=== PATIENT | male | born 1930 | race Caucasian/White ===

== ENCOUNTER 2016-11-12 08:34 | Inpatient (IN) | payer OTHER, MEDICARE ==
--- NOTE | 2016-11-12 08:48 | EDPHY ---
H & P Stated Complaint: bilateral leg swelling/?afib Time Seen by Provider: 11/12/16 08:45 HPI/ROS: CHIEF COMPLAINT: Bilateral lower extremity swelling HISTORY OF PRESENT ILLNESS: The patient presents to the ED with markedly worsening bilateral lower extremity swelling for the past 2 weeks. He does have a history of chronic lower extremity edema and possible history of atrial fibrillation. The patient takes gabapentin and Coumadin. The patient has no history of heart failure that he is aware of. The patient does not take a diuretic. The patient typically receives his care in [place] however has been here in [place] for several weeks as his is recovering from an unexpected injury. He is living with his daughter who brings him to the emergency department for evaluation today. The patient denies orthopnea or PND. The patient reports market increase in his bilateral lower extremity edema with some weeping serous fluid drainage. The patient has been compliant with his Coumadin. He has not had a recent INR check. REVIEW OF SYSTEMS: A comprehensive 10 point review of systems is otherwise negative aside from elements mentioned in the history of present illness. Source: Patient Exam Limitations: No limitations - Personal History Current Tetanus/Diphtheria Vaccine: Yes - Medical/Surgical History Hx Asthma: No Hx Chronic Respiratory Disease: No Hx Diabetes: No Hx Cardiac Disease: Yes Hx Renal Disease: No Hx Cirrhosis: No Hx Alcoholism: No Hx HIV/AIDS: No Hx Splenectomy or Spleen Trauma: No Other PMH: afib - Social History Smoking Status: Never smoked - Physical Exam Exam: General Appearance: Obese male, no acute distress Eyes: Pupils equal and round no pallor or injection ENT, Mouth: Mucous membranes moist Respiratory: There are no retractions, lungs are clear to auscultation Cardiovascular: Tachycardic, irregular, consistent with atrial fibrillation Gastrointestinal: Abdomen is soft and nontender, no masses, bowel sounds normal Neurological: A&O, normal motor function, normal sensory exam, normal cranial nerves Skin: Warm and dry, no rashes Musculoskeletal: Neck is supple nontender Extremities: Bilateral lower extremity swelling with 3+ edema Constitutional: Initial Vital Signs Temperature (C) 36.2 C 11/12/16 08:40 Heart Rate 135 H 11/12/16 08:40 Respiratory Rate 28 H 11/12/16 08:40 Blood Pressure 169/95 H 11/12/16 08:40 O2 Sat (%) 92 11/12/16 08:40 O2 Delivery Mode Room Air O2 (L/minute) 2 Allergies/Adverse Reactions: No Known Allergies Allergy (Unverified 11/12/16 08:39) Home Medications: Medication Instructions Recorded GABAPENTIN 11/12/16 Warfarin Sodium 11/12/16 Medical Decision Making - Diagnostics EKG Interpretation: EKG: Complete interpretation has been separately recorded in the [facility] archive. Summary impression: Atrial fibrillation with rapid ventricular response, rate 137 Imaging: Chest AP: Cardiomegaly, no laurent congestive heart failure. Images reviewed by myself Bilateral lower extremity ultrasound: Positive for bilateral lower extremity DVTs. Images reviewed by myself and discussed with radiologist Dr. Suarez. ED Course/Re-evaluation: The patient presents to the emergency department for evaluation of bilateral lower extremity edema and AFib with rapid ventricular response. The patient is noted to be hemodynamically stable aside from his tachycardia upon arrival. The patient did have a stat x-ray which demonstrates no evidence of laurent heart failure but does demonstrate cardiomegaly. The patient did received 40 mg of IV Lasix for bilateral lower extremity swelling. As part of a workup for his bilateral lower extremity swelling the patient is noted to have bilateral DVTs. The patient is therapeutically anticoagulated on his Coumadin with an INR of 2.5. The patient did undergo an echocardiogram in the emergency department which demonstrates an ejection fraction of 55%. The patient was also started on a diltiazem drip for management of his atrial fibrillation with rapid ventricular response. The patient had serial examinations in the emergency department. He will require admission to the hospital in the setting of his uncontrolled atrial fibrillation, acute bilateral lower extremity DVTs while on Coumadin and treatment of his lower extremity edema. Consultation is made with the hospitalist service. The patient will be admitted by Dr. Laurent Smart. Differential Diagnosis: Differential diagnosis considered includes atrial fibrillation, ventricular tachycardia, congestive heart failure, myocardial infarction, lower extremity edema, cellulitis - Data Points Laboratory Results: Laboratory Results 11/12/16 08:54 11/12/16 08:54 11/12/16 08:54 WBC 6.82 10^3/uL (3.80-9.50) RBC 4.16 L 10^6/uL (4.40-6.38) Hgb 15.3 g/dL (13.7-17.5) Hct 46.1 % (40.0-51.0) MCV 110.8 H fL (81.5-99.8) MCH 36.8 H pg (27.9-34.1) MCHC 33.2 g/dL (32.4-36.7) RDW 13.8 % (11.5-15.2) Plt Count 99 L 10^3/uL (150-400) MPV 9.9 fL (8.7-11.7) Neut % (Auto) 70.6 % (39.3-74.2) Lymph % (Auto) 21.1 % (15.0-45.0) [place] % (Auto) 6.2 % (4.5-13.0) Eos % (Auto) 0.4 L % (0.6-7.6) Baso % (Auto) 0.1 L % (0.3-1.7) Nucleat RBC Rel Count 0.4 H % (0.0-0.2) Absolute Neuts (auto) 4.81 10^3/uL (1.70-6.50) Absolute Lymphs (auto) 1.44 10^3/uL (1.00-3.00) Absolute Monos (auto) 0.42 10^3/uL (0.30-0.80) Absolute Eos (auto) 0.03 10^3/uL (0.03-0.40) Absolute Basos (auto) 0.01 L 10^3/uL (0.02-0.10) Absolute Nucleated RBC 0.03 H 10^3/uL (0-0.01) Immature Gran % 1.6 H % (0.0-1.1) Immature Gran # 0.11 H 10^3/uL (0.00-0.10) PT 27.3 H SEC (12.0-15.0) INR 2.50 H (0.83-1.16) Sodium 145 H mEq/L (134-144) Potassium 4.2 mEq/L (3.5-5.2) Chloride 105 mEq/L (97-110) Carbon Dioxide 28 mEq/l (22-31) Anion Gap 12 mEq/L (8-16) BUN 21 mg/dL (7-23) Creatinine 1.0 mg/dL (0.7-1.3) Estimated GFR > 60 Glucose 107 H mg/dL (70-100) Calcium 8.8 mg/dL (8.5-10.4) Troponin I 0.043 H ng/mL (0-0.034) NT-Pro-B Natriuret Pep 2270 H pg/mL (0-450) Medications Given: Discontinued Medications Furosemide (Lasix Injection) 40 mg IVP EDNOW ONE Stop: 11/12/16 09:46 Last Admin: 11/12/16 10:00 Dose: 40 mg Diltiazem HCl 125 mg/ Dextrose 150 mls @ 0 mls/hr IV EDNOW ONE; As Directed PRN Reason: Protocol Stop: 11/12/16 11:25 Last Admin: 11/12/16 12:25 Dose: 150 mls Departure - Departure Disposition: [facility] Clinical Impression: Peripheral edema, Bilateral lower extremity edema, Atrial fibrillation with RVR Condition: Fair
--- NOTE | 2016-11-12 08:58 | CPEKG ---
Heart Rate: 137 RR Interval: 438 QRSD Interval: 86 QT Interval: 272 QTC Interval: 411 QRS [place]: 87 T Wave [place]: -51 EKG Severity - ABNORMAL ECG - EKG Impression: ATRIAL FIBRILLATION, V-RATE 92-167 EKG Impression: BORDERLINE RIGHT AXIS DEVIATION Electronically Signed By: Jason Velazco 13-Nov-2016 11:54:42
[2016-11-12 09:06] LABS: % IMMATURE GRANULYOCYTES 1.6 % (0.0-1.1); ABSOLUTE IMMATURE GRANULOCYTES 0.11 10^3/uL (0.00-0.10); ABSOLUTE NRBC COUNT 0.03 10^3/uL (0-0.01); ADD DIFF? NO; ADD MORPH? NO; ADD SCAN? NO; ATYPICAL LYMPHOCYTE FLAG 0 (0-99); FRAGMENT RBC FLAG 0 (0-99); HEMATOCRIT 46.1 % (40.0-51.0); HEMOGLOBIN 15.3 g/dL (13.7-17.5); LEFT SHIFT FLG 20 (0-99); LIPEMIA HEMOLYSIS FLAG 80 (0-99); MEAN CELL HEMOGLOBIN 36.8 pg (27.9-34.1); MEAN CELL HEMOGLOBIN CONCENTR. 33.2 g/dL (32.4-36.7); MEAN CELL VOLUME 110.8 fL (81.5-99.8); MEAN PLATELET VOLUME 9.9 fL (8.7-11.7); NRBC-AUTO% 0.4 % (0.0-0.2); PLATELET CLUMPS FLAG 0 (0-99); PLATELET COUNT 99 10^3/uL (150-400); RED BLOOD CELL COUNT 4.16 10^6/uL (4.40-6.38); RED CELL DISTRIBUTION WIDTH 13.8 % (11.5-15.2)
[2016-11-12 09:17] LABS: ANION GAP 12 mEq/L (8-16); CALCIUM 8.8 mg/dL (8.5-10.4); CARBON DIOXIDE 28 mEq/l (22-31); CHLORIDE 105 mEq/L (97-110); GLOMERULAR FILTRATION RATE > 60; GLUCOSE 107 mg/dL (70-100); POTASSIUM 4.2 mEq/L (3.5-5.2); SODIUM 145 mEq/L (134-144)
[2016-11-12 09:20] LABS: INR 2.5 (0.83-1.16); PROTIME(PATIENT) 27.3 SEC (12.0-15.0)
[2016-11-12 09:29] LABS: TROPONIN I 0.043 ng/mL (0-0.034)
[2016-11-12] MEDS ORDERED: FUROSEMIDE 40 MG/4 ML VIAL IVP ONE (09:45)
--- NOTE | 2016-11-12 11:00 | DX ---
Portable Chest November 12, 2016 at 0942 hours Clinical Indications: Shortness of breath in an 86-year-old male; no previous chest films are availab le for comparison. Findings: The heart is enlarged. Pulmonary vascularity appears normal. No pleural effusions are seen. No focal pulmonary consolidation is identified. Pleural surfaces and bony thorax are negative for ac huey abnormality. Impression: Congestive heart failure without laurent pulmonary edema.
--- NOTE | 2016-11-12 11:07 | ECHO ---
[id number] + + [address] : : [place] [address] : : [phone] + + Adult Echocardiographic Report + ------+ :Name: NOAHGODWIN BRUMFIELDOLPH DStudy Date: 11/12/2016 09:15 AM : : Hospital Admission Number: [id number] Locati on: ER: :: [id number] Gender: Male Height: 69 in : :Age: 86 yrs Weight: 220 lb : :Reason For Study: Edema/Afib : : BSA: 2.2 meter s2 : + ------+ MMode/2D Measurements & Calculations IVSd: 1.2 cm LVIDd: 5.0 cm EDV(Teich): 119.0 ml Ao root diam: 4.1 cm LVPWd: 1.1 cm LA dimension: 4.8 cm Normal Measurement Values: + + :LVIDd (3.5-5.7cm) IVSd (0.6-1.1cm) LVPWd (0.6-1.1cm) Aortic Root (2.0-3.7cm)Left Atrium (1.5-4.0cm): :LV Vol(d) (76-115ml) LV Vol(s) (29-48ml) Ejec Fraction (50-65%)PV Ga (0.6- 1.2m/s) TV Ga (0.4-1.0m/s) : :MV E Ga (0.8-1.0m/s)MV A Ga (0.3-1.0m/s)LVOT Ga (0.7-1.2m/s) Asc Ao Ga ( 0.9-1.8m/s) : + + Doppler Measurements & Calculations MV E max ga: 88.4 cm/sec TR max ga: 259.0 cm/sec TR max P.8 mmHg RAP systole: 5.0 mmHg RVSP(TR): 31.8 mmHg Left Ventricle The left ventricle is normal in size. There is normal left ventricular wall thickness. Left ventricular systolic function is normal. Ejection Fraction = 55-60%. No regional wall motion abnormalities noted. Right Ventricle The right ventricle is normal in size and function. Atria The left atrium is moderately dilated. Right atrial size is normal. The interatrial septum is intact with no evidence for an atrial septal defect. Mitral Valve The mitral valve is normal in structure and function. There is no evidence of mitral valve prolapse. There is no mitral valve stenosis. There is mild to moderate mitral regurgitation. Tricuspid Valve Normal tricuspid valve. There is mild to moderate tricuspid regurgitation. Right ventricular systolic pressure is normal. Aortic Valve The aortic valve is trileaflet. The aortic valve opens well. Mild AO calcification. There is no aortic stenosis. Trace aortic regurgitation. Pulmonic Valve The pulmonic valve is normal in structure and function. There is no pulmonic valvular regurgitation. Great Vessels The aortic root is normal size. Pericardium/Pleural trivial pericardial effusion. Conclusion A complete two-dimensional transthoracic echocardiogram was performed (2D, M-mode, Doppler and color flow Doppler). Left ventricular systolic function is normal. Ejection Fraction = 55-60%. The left atrium is moderately dilated. There is mild to moderate mitral regurgitation. There is mild to moderate tricuspid regurgitation. Right ventricular systolic pressure is normal. Trace aortic regurgitation. Mild AO calcification. trivial pericardial effusion. Final Reading Physician: Mary Edwards signed on 11/12/2016 11:03 AM Ordering Physician: Jason Velazco Performed By: Catrachita Pedro RD
[2016-11-12] MEDS ORDERED: DILTIAZEM 125 MG in D5W 125 ML IV ONE (11:24)
--- NOTE | 2016-11-12 11:43 | US ---
Bilateral Lower Extremity Deep Duplex Venous Ultrasound November 12, 2016 Indication: Leg pain. Technique: The right and left lower extremity deep venous system and veins of the proximal calves wer e interrogated with grayscale, color, and spectral Doppler imaging. Findings: Right: Occlusive thrombus fills and expands the popliteal, peroneal and posterior tibial veins. Nonoc clusive thrombus extends superiorly into the distal femoral vein. The femoral vein in the upper thigh , common femoral vein, and greater saphenous vein completely compress and have normal flow. Left: Thrombus fills and expands the popliteal and distal posterior tibial and peroneal veins. A tric kle of flow courses along the thrombus on color Doppler imaging. The femoral vein, common femoral vei n, and greater saphenous vein compress and have normal blood flow. Impression: Bilateral acute deep venous thrombosis involving the popliteal, peroneal, and posterior t ibial veins. The thrombus on the right minimally extends into the distal femoral vein. Comment: Results were discussed with Dr. Jason Velazco at 11:35 a.m. on November 12, 2016.
--- NOTE | 2016-11-12 15:22 | PDGENHP ---
History and Physical - Chief Complaint Leg swelling - History of Present Illness this is a 86-year-old male visiting from [place] whose was recently treated at [facility] after sustaining a hip fracture presents to the emergency department today with worsening leg swelling. Patient denies any history of blood clots, but has been on warfarin for atrial fibrillation. Patient reports being off of warfarin for approximately 5 days at the beginning of the month when his prescription ran out. He then restarted his warfarin as directed. Over the past week and the patient noticed worsening swelling of his legs as well as some water draining from his right lower leg. He denies any fevers or chills. He always feels short of breath but has not noted to be hypoxemic at home per his daughter's portable oximeter. In the emergency department today He was found to be in rapid atrial fibrillation. The patient denies any chest pain or palpitations. He denies any new shortness of breath. History Information - Allergies/Home Medication List Allergies/Adverse Reactions: No Known Allergies Allergy (Unverified 11/12/16 08:39) Home Medications: Gabapentin [Neurontin 300 MG (*)] 600 mg PO DAILY@11/12/16 [Last Taken Unknown] Gabapentin [Neurontin 300 MG (*)] 900 mg PO HS 11/12/16 [Last Taken Unknown] Warfarin Sodium [Coumadin 4MG (*)] 4 mg PO DAILY16 11/12/16 [Last Taken Unknown] I have personally reviewed and updated: family history, medical history, social history, surgical history Past Medical History: peripheral neuropathy, atrial fibrillation, melanoma - Surgical History Additional surgical history: melanoma excision, cataract surgery - Social History Smoking Status: Never smoked Alcohol Use: Other (patient's daughter tells me that he drinks wine daily but is unable to quantify exactly how much. She estimates that it is around 20 oz.) Drug Use: None Additional social history: He is visiting from [place]. His is currently rehabilitating from hip fracture at [facility]. Review of Systems ROS: 10pt was reviewed & negative except for what was stated in HPI & below Neurological: Reports: other ( Patient's daughter reports increased forgetfulness and confusion over the past few days) Physical Exam Temp Pulse Resp BP Pulse Ox 36.6 C 126 H 20 119/70 96 11/12/16 15:07 11/12/16 15:07 11/12/16 15:07 11/12/16 15:07 11/12/16 15:07 O2 (L/minute) 1 Constitutional: no apparent distress, appears nourished, not in pain Eyes: PERRL, anicteric sclera, EOMI Ears, Nose, Mouth, Throat: moist mucous membranes, hearing normal, ears appear normal, no oral mucosal ulcers Cardiovascular: irregularly irregular, tachycardia, edema, No JVD Respiratory: no respiratory distress, no rales or rhonchi, clear to auscultation , No reduced air movement Gastrointestinal: normoactive bowel sounds, soft, non-tender abdomen, no palpable masses, No guarding, No rebound Skin: warm, normal color, no rashes or abrasions, no fluctuance, no induration, No mottled Musculoskeletal: full muscle strength, no muscle tenderness, normal joint ROM, no joint effusions Neurologic: AAOx3, CN II-XII Intact, No facial droop Psychiatric: interacting appropriately, not anxious, not encephalopathic, poor memory Lab Data & Imaging Review 11/12/16 08:54 11/12/16 08:54 WBC 6.82 10^3/uL (3.80-9.50) 11/12/16 08:54 RBC 4.16 10^6/uL (4.40-6.38) L 11/12/16 08:54 Hgb 15.3 g/dL (13.7-17.5) 11/12/16 08:54 Hct 46.1 % (40.0-51.0) 11/12/16 08:54 MCV 110.8 fL (81.5-99.8) H 11/12/16 08:54 MCH 36.8 pg (27.9-34.1) H 11/12/16 08:54 MCHC 33.2 g/dL (32.4-36.7) 11/12/16 08:54 RDW 13.8 % (11.5-15.2) 11/12/16 08:54 Plt Count 99 10^3/uL (150-400) L 11/12/16 08:54 MPV 9.9 fL (8.7-11.7) 11/12/16 08:54 Neut % (Auto) 70.6 % (39.3-74.2) 11/12/16 08:54 Lymph % (Auto) 21.1 % (15.0-45.0) 11/12/16 08:54 [place] % (Auto) 6.2 % (4.5-13.0) 11/12/16 08:54 Eos % (Auto) 0.4 % (0.6-7.6) L 11/12/16 08:54 Baso % (Auto) 0.1 % (0.3-1.7) L 11/12/16 08:54 Nucleat RBC Rel Count 0.4 % (0.0-0.2) H 11/12/16 08:54 Absolute Neuts (auto) 4.81 10^3/uL (1.70-6.50) 11/12/16 08:54 Absolute Lymphs (auto) 1.44 10^3/uL (1.00-3.00) 11/12/16 08:54 Absolute Monos (auto) 0.42 10^3/uL (0.30-0.80) 11/12/16 08:54 Absolute Eos (auto) 0.03 10^3/uL (0.03-0.40) 11/12/16 08:54 Absolute Basos (auto) 0.01 10^3/uL (0.02-0.10) L 11/12/16 08:54 Absolute Nucleated RBC 0.03 10^3/uL (0-0.01) H 11/12/16 08:54 Immature Gran % 1.6 % (0.0-1.1) H 11/12/16 08:54 Immature Gran # 0.11 10^3/uL (0.00-0.10) H 11/12/16 08:54 PT 27.3 SEC (12.0-15.0) H 11/12/16 08:54 INR 2.50 (0.83-1.16) H 11/12/16 08:54 Sodium 145 mEq/L (134-144) H 11/12/16 08:54 Potassium 4.2 mEq/L (3.5-5.2) 11/12/16 08:54 Chloride 105 mEq/L (97-110) 11/12/16 08:54 Carbon Dioxide 28 mEq/l (22-31) 11/12/16 08:54 Anion Gap 12 mEq/L (8-16) 11/12/16 08:54 BUN 21 mg/dL (7-23) 11/12/16 08:54 Creatinine 1.0 mg/dL (0.7-1.3) 11/12/16 08:54 Estimated GFR > 60 11/12/16 08:54 Glucose 107 mg/dL (70-100) H 11/12/16 08:54 Calcium 8.8 mg/dL (8.5-10.4) 11/12/16 08:54 Troponin I 0.043 ng/mL (0-0.034) H 11/12/16 08:54 NT-Pro-B Natriuret Pep 2270 pg/mL (0-450) H 11/12/16 08:54 Visualized and Interpreted Chest x-ray results: Yes Chest X-Ray results: other ( cardiomegaly with congestive heart failure) Visualized and Interpreted imaging results: Yes Interpretation: lower extremity Doppler: Impression: Bilateral acute deep venous thrombosis involving the popliteal, peroneal, and. posterior tibial veins. The thrombus on the right minimally extends into the distal femoral vein. Visualized and Interpreted EKG results: Yes EKG Interpretation: Positive for: other ( atrial fibrillation rate 137 beats per minute). Negative for: ST elevation, ST depression Assessment & Plan Assessment: This is a 86-year-old male visiting from [place] presenting with: # acute bilateral DVT Which most likely developed after being off of Coumadin at the beginning of the month. I doubt that this represents Coumadin failure # paroxysmal atrial fibrillation with rapid ventricular response # acute diastolic heart failure in the setting of rapid atrial fibrillation # indeterminate troponin due to myocardial strain from above # history of alcohol dependence # suspected delirium plan: - continue warfarin with daily monitoring of the INR - continue rate control with IV diltiazem - diuresis with IV furosemide - trend troponin - monitor for signs and symptoms of alcohol withdrawal
[2016-11-12] MEDS ORDERED: ONDANSETRON 4 MG/2 ML VIAL IVP PRN (15:38)
[2016-11-12] MEDS ORDERED: ACETAMINOPHEN 325 MG TAB PO PRN (15:38)
[2016-11-12] MEDS ORDERED: DILTIAZEM 125 MG in D5W 125 ML IV SCH (16:00)
[2016-11-12] MEDS: FUROSEMIDE 40 MG/4 ML VIAL IVP SCH (16:32)
[2016-11-12] MEDS: DILTIAZEM CD 120 MG CAP PO SCH (16:32)
[2016-11-12] MEDS: WARFARIN SODIUM 4 MG TAB PO SCH (16:32)
[2016-11-12] MEDS: GABAPENTIN 300 MG CAP PO SCH (20:05)
[2016-11-12] MEDS ORDERED: METOPROLOL TARTRATE 25 MG TAB PO ONE (23:30)
[2016-11-13 04:57] LABS: % IMMATURE GRANULYOCYTES 0.8 % (0.0-1.1); ABSOLUTE IMMATURE GRANULOCYTES 0.05 10^3/uL (0.00-0.10); ADD DIFF? NO; ADD MORPH? NO; ADD SCAN? NO; ATYPICAL LYMPHOCYTE FLAG 0 (0-99); FRAGMENT RBC FLAG 0 (0-99); HEMATOCRIT 41.7 % (40.0-51.0); LEFT SHIFT FLG 10 (0-99); LIPEMIA HEMOLYSIS FLAG 80 (0-99); MEAN CELL HEMOGLOBIN 36.2 pg (27.9-34.1); MEAN CELL HEMOGLOBIN CONCENTR. 33.6 g/dL (32.4-36.7); MEAN CELL VOLUME 107.8 fL (81.5-99.8); MEAN PLATELET VOLUME 10.1 fL (8.7-11.7); PLATELET CLUMPS FLAG 10 (0-99); PLATELET COUNT 99 10^3/uL (150-400); RED BLOOD CELL COUNT 3.87 10^6/uL (4.40-6.38); RED CELL DISTRIBUTION WIDTH 13.5 % (11.5-15.2)
[2016-11-13 05:04] LABS: ANION GAP 8 mEq/L (8-16); CALCIUM 8.4 mg/dL (8.5-10.4); CARBON DIOXIDE 29 mEq/l (22-31); CHLORIDE 103 mEq/L (97-110); CREATININE 0.9 mg/dL (0.7-1.3); GLOMERULAR FILTRATION RATE > 60; GLUCOSE 97 mg/dL (70-100); POTASSIUM 3.9 mEq/L (3.5-5.2); SODIUM 140 mEq/L (134-144)
[2016-11-13 05:11] LABS: INR 2.54 (0.83-1.16); PROTIME(PATIENT) 27.6 SEC (12.0-15.0)
[2016-11-13] MEDS: GABAPENTIN 300 MG CAP PO SCH ×3 (08:29→21:26)
[2016-11-13] MEDS: FUROSEMIDE 40 MG/4 ML VIAL IVP SCH ×2 (08:29→15:05)
[2016-11-13] MEDS: DILTIAZEM CD 120 MG CAP PO SCH (08:29)
--- NOTE | 2016-11-13 12:30 | HOSPPROG ---
Hospitalist Progress Note Assessment/Plan: Assessment: This is a 86-year-old male visiting from [place] presenting with: # acute bilateral DVT which most likely developed after being off of Coumadin at the beginning of the month. I doubt that this represents Coumadin failure # paroxysmal atrial fibrillation with rapid ventricular response # acute diastolic heart failure in the setting of rapid atrial fibrillation # indeterminate troponin due to myocardial strain from above (improving trop) # history of alcohol dependence # suspected delirium plan: - continue warfarin with daily monitoring of the INR - dc iv dilt and cont po dilt - continue diuresis with IV furosemide - monitor for signs and symptoms of alcohol withdrawal - repeat leg doppler in a few weeks to followup dvt Subjective: no chest pain. improving leg swelling. no sob Objective: Vital Signs Temp Pulse Resp BP Pulse Ox 36.4 C 106 H 20 95/69 L 93 11/13/16 07:15 11/13/16 07:15 11/13/16 07:15 11/13/16 07:15 11/13/16 07:15 Laboratory Results 11/13/16 04:33 11/13/16 04:33 11/12/16 11/13/16 11/14/16 05:59 05:59 05:59 Intake Total 1336 Output Total 3550 Balance -2214 PT 27.6 SEC (12.0-15.0) H 11/13/16 04:33 INR 2.54 (0.83-1.16) H 11/13/16 04:33 - Physical Exam Constitutional: no apparent distress, appears nourished, not in pain Cardiovascular: irregularly irregular, edema (bilat legs are weeping), No tachycardia Respiratory: no respiratory distress, no rales or rhonchi, clear to auscultation Gastrointestinal: normoactive bowel sounds, soft, non-tender abdomen, no palpable masses Neurologic: AAOx3, CN II-XII Intact, No facial droop ICD10 Worksheet Patient Problems: Problems Problem Status Diagnosed Atrial fibrillation with RVR Acute Bilateral lower extremity edema Acute Peripheral edema Acute
--- NOTE | 2016-11-13 14:24 | GCON ---
[f rep st] CONSULTATION CARDIOLOGY CONSULTATION I have been asked to do a cardiovascular consultation to help manage his arrhythmias and peripheral e colin. HISTORY OF PRESENT ILLNESS: The patient is a adriana gentleman from [place], [place], originally, who is h ere in town because his has been quite ill while she has been in town. They were not planning on staying that long, but he is staying because she is so sick. He came into the hospital with a complaint of swelling in his lower extremities. It was getting wors e and worse, and his evaluation has determined that he has bilateral deep venous thrombosis. He has been quite inactive. He did not have significant trauma as a risk factor. He did not have cancer as a risk factor. However, he has had ongoing swelling for quite a while, has ignored it, and finally decided to come i n and get it evaluated, which he is doing at this time. He has been on Coumadin for atrial fibrillat ion. He has been on Coumadin for more than 10 years. He has had atrial fibrillation for at least 10 years. It does not bother him. He does not come in today complaining of shortness of breath or orthopnea. He has no chest pain, chest tightness, jaw pain, or arm pain. He has no history of other arrhythmias. He has no recent fevers, chills, or cough. He denies shortness of breath or other symptoms of pulmon roxanne embolic disease, such as hemoptysis. He has not had a significant cough, when I ask his history. He has gotten to the point where his edema is so bad in his lower extremities, he is weeping and losi ng fluid from his lower extremities. This is more on the right than the left. His cardiac risk factors are negative for diabetes, hyperlipidemia, myocardial infarction, hypertensi on, family history of premature coronary artery disease. He has no history of coronary artery disease, myocardial infarction, bypass surgery, etc. He has been taking his medications but ran out of Coumadin. ALLERGIES: None to medications. MEDICATIONS: Medications at home have included warfarin and Neurontin. PAST SURGICAL HISTORY: Includes cataracts. He has had skin cancer removed. 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 The address he and his now have is [place], [place] on eir paperwork. He does not smoke. He does not drink significant amounts of alcohol. He is trying t o exercise by walking. He is careful about his weight. REVIEW OF SYSTEMS: Negative, except as noted, 10 points. He does have decreased hearing. PHYSICAL EXAMINATION: VITAL SIGNS: His blood pressure is 125/70. His pulse is 110. Respiratory rat e is 14. Sitting comfortably in a hospital bed. LUNGS: Rhonchi bilaterally. No rales, wheezing, o r dullness. CARDIOVASCULAR: S1, S2. Distant heart sounds. CVA has no tenderness. ABDOMEN: Soft, nontender, w ithout masses, very large. He is significantly obese. SKIN: Shows age-related changes and the weep ing and the wounds as discussed in the chart already. He has 3+ edema above the knees bilaterally. He has excoriations and bruises. He has upper extremity bruises as well. PSYCH: He has no obvious anxiety or depression. 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 He has difficulty hearing. LABORATORY DATA: His white count is 6.8, hematocrit 46, platelets 99,000, sodium 145, potassium 4.2, chloride 105, CO2 28, BUN 21, creatinine 1.0. Troponin 0.043. BNP 2270. He has bilateral acute DV Ts on his study. His echocardiogram shows mild to moderate MR and TR, with a normal pulmonary artery pressure. Left atrium is enlarged. Ejection fraction 55% to 60%. X-ray shows cardiomegaly, but no changes in the lung churchill. He does not have heart failure on his c hest x-ray. EKG shows atrial fibrillation with a rapid ventricular response. The EKG shows diffuse ST-T changes as well. ASSESSMENT AND PLAN: 1. Atrial fibrillation. 2. Peripheral edema. 3. Deep venous thrombosis bilaterally. 4. Chronic Coumadin anticoagulation. 5. Dwaj-qy-hcvuejuq moderate mitral regurgitation. 6. Vnsf-lu-cirzaqre tricuspid regurgitation. This patient has atrial fibrillation, and he is being controlled with diltiazem. He is tolerating th is well. His atrial fibrillation is still a little bit fast, and his medication is being up-titrated appropriately. He has no symptoms from his atrial fibrillation. He has been in it for a very long time. He is tole rating diltiazem. He has no systolic heart failure. He can take a calcium channel dianelys. We can increase his dose further if it does not settle down as he absorbs the p.o. doses he has been getting . I do not find any significant complications, neurologic or otherwise, from his atrial fibrillation or the anticoagulation he has been taking. The management of his deep venous thrombosis in the face of a history of Coumadin, even with a little bit of a window where he was not therapeutic, is an interesting issue, and I would be very aggressiv e with his anticoagulation at this point in time. Also, I would not take him off Coumadin down the road. So, I would recommend he stay on it lifelong for the combination of atrial fibrillation and his deep venous thrombosis. At this time, I do not fi nd any findings to suggest he has had pulmonary embolic phenomenon. We can watch for this and make sure he does not get respiratory compromise, and if he develops that, we would have to consider more aggressive anticoagulation with IV heparin, etc. He does have significant edema in his lower extremities. I have talked to the hospitalist, and they are going to start diuresing him a bit. I do not think this need for diuresis represents heart failu re. He has modest valvular heart disease with [id number] mitral regurgitation and tricuspid regurgi tation. His pulmonary artery pressures are good, and I am sure that is partly why he feels so good a nd can walk around quite well and not be more bothered by his both atrial fibrillation and other cond itions. He is significantly overweight, and this is something that has to be focused on for the long-term. We will follow with you for his rate control. I would not proceed at this time with stress testing o r anything invasive to evaluate his heart. I have discussed his case several times with the hospitalist. /[id number]/MODL
[2016-11-13] MEDS: WARFARIN SODIUM 4 MG TAB PO SCH (15:06)
[2016-11-13] MEDS: RED WINE 120 ML BOTTLE PO SCH (17:47)
[2016-11-14 04:42] LABS: % IMMATURE GRANULYOCYTES 0.8 % (0.0-1.1); ABSOLUTE IMMATURE GRANULOCYTES 0.05 10^3/uL (0.00-0.10); ADD DIFF? NO; ADD MORPH? NO; ADD SCAN? NO; ATYPICAL LYMPHOCYTE FLAG 0 (0-99); FRAGMENT RBC FLAG 0 (0-99); HEMATOCRIT 41.9 % (40.0-51.0); HEMOGLOBIN 14.6 g/dL (13.7-17.5); LEFT SHIFT FLG 0 (0-99); LIPEMIA HEMOLYSIS FLAG 90 (0-99); MEAN CELL HEMOGLOBIN 37.1 pg (27.9-34.1); MEAN CELL HEMOGLOBIN CONCENTR. 34.8 g/dL (32.4-36.7); MEAN CELL VOLUME 106.3 fL (81.5-99.8); MEAN PLATELET VOLUME 9.9 fL (8.7-11.7); PLATELET CLUMPS FLAG 10 (0-99); PLATELET COUNT 112 10^3/uL (150-400); RED BLOOD CELL COUNT 3.94 10^6/uL (4.40-6.38); RED CELL DISTRIBUTION WIDTH 13.1 % (11.5-15.2)
[2016-11-14 04:53] LABS: ANION GAP 8 mEq/L (8-16); CALCIUM 8.3 mg/dL (8.5-10.4); CARBON DIOXIDE 30 mEq/l (22-31); CHLORIDE 101 mEq/L (97-110); CREATININE 0.8 mg/dL (0.7-1.3); GLOMERULAR FILTRATION RATE > 60; GLUCOSE 102 mg/dL (70-100); INR 2.94 (0.83-1.16); POTASSIUM 3.8 mEq/L (3.5-5.2); SODIUM 139 mEq/L (134-144)
[2016-11-14] MEDS: GABAPENTIN 300 MG CAP PO SCH ×3 (10:18→20:23)
[2016-11-14] MEDS: FUROSEMIDE 40 MG/4 ML VIAL IVP SCH ×2 (10:18→15:12)
[2016-11-14] MEDS ORDERED: DILTIAZEM XR 240 MG CAP PO ONE (10:21)
[2016-11-14] MEDS: DILTIAZEM CD 120 MG CAP PO SCH ×2 (10:25→11:17)
--- NOTE | 2016-11-14 10:40 | SOAPPROG ---
SOAP Progress Note Assessment/Plan: Assessment/Plan: This is a 86 yr old with chronic AF, mild to moderate valvular abnormalities with normal EF, bilateral DVT related pedal edema. AF: Rate is suboptimally controlled. Increase Cardizem CD to 240mg po qd. Continue Warfarin Pedal edema: Leg elevation, gentle diuresis, wound care. Valvular abnormalities: Not a surgical disease at current point in time. Continue current med regimen BP is under optimal control 11/14/16 10:36 Subjective: Pt doing well. Anxious to get discharged Objective: Vital Signs Temp Pulse Resp BP Pulse Ox 37.0 C 118 H 14 105/65 95 11/14/16 08:36 11/14/16 08:36 11/14/16 08:36 11/14/16 08:36 11/14/16 08:36 Laboratory Results 11/14/16 04:10 11/14/16 04:10 11/13/16 11/14/16 11/15/16 05:59 05:59 05:59 Intake Total 1336 700 600 Output Total 3550 1100 Balance -2214 -400 600 PT 31.0 SEC (12.0-15.0) H 11/14/16 04:10 INR 2.94 (0.83-1.16) H 11/14/16 04:10 Physical Exam - Physical Exam General Appearance: alert, no apparent distress EENT: PERRL/EOMI, normal ENT inspection Neck: supple, normal inspection Respiratory: lungs clear, normal breath sounds, No rales, No rhonchi Cardiac/Chest: edema, irregularly irregular, No gallop Abdomen: non-tender, soft Skin: warm/dry Extremities: pedal edema, swelling Neuro/Psych: alert, oriented x 3 ICD10 Worksheet Patient Problems: Problems Problem Status Diagnosed Atrial fibrillation with RVR Acute Bilateral lower extremity edema Acute Peripheral edema Acute
--- NOTE | 2016-11-14 13:53 | HOSPPROG ---
Hospitalist Progress Note Assessment/Plan: Assessment: This is a 86-year-old male visiting from [place] presenting with: # acute bilateral DVT which most likely developed after being off of Coumadin at the beginning of the month. I doubt that this represents Coumadin failure # paroxysmal atrial fibrillation with rapid ventricular response # acute diastolic heart failure in the setting of rapid atrial fibrillation # indeterminate troponin due to myocardial strain from above (improving trop) # history of alcohol dependence # suspected delirium plan: - continue warfarin with daily monitoring of the INR - agree with increasing dilt to 240mg daily - continue diuresis with IV furosemide - monitor for signs and symptoms of alcohol withdrawal - repeat leg doppler in a few weeks to followup dvt Subjective: continues to have weeping legs and poorly controlled heart rate Objective: Vital Signs Temp Pulse Resp BP Pulse Ox 37.0 C 139 H 19 127/84 H 91 L 11/14/16 08:36 11/14/16 12:26 11/14/16 12:26 11/14/16 12:26 11/14/16 12:26 Laboratory Results 11/14/16 04:10 11/14/16 04:10 11/13/16 11/14/16 11/15/16 05:59 05:59 05:59 Intake Total 1336 700 600 Output Total 3550 1100 600 Balance -2214 -400 0 PT 31.0 SEC (12.0-15.0) H 11/14/16 04:10 INR 2.94 (0.83-1.16) H 11/14/16 04:10 - Physical Exam Constitutional: no apparent distress, appears nourished, not in pain Cardiovascular: no murmur, rub, or gallop, irregularly irregular, tachycardia, edema, No JVD Respiratory: no respiratory distress, no rales or rhonchi, clear to auscultation Gastrointestinal: normoactive bowel sounds, soft, non-tender abdomen, no palpable masses Neurologic: AAOx3, sensation intact bilaterally ICD10 Worksheet Patient Problems: Problems Problem Status Diagnosed Atrial fibrillation with RVR Acute Bilateral lower extremity edema Acute Peripheral edema Acute
[2016-11-14] MEDS: WARFARIN SODIUM 4 MG TAB PO SCH (15:12)
[2016-11-14] MEDS: RED WINE 120 ML BOTTLE PO SCH (17:46)
[2016-11-15 04:30] LABS: % IMMATURE GRANULYOCYTES 0.8 % (0.0-1.1); ABSOLUTE IMMATURE GRANULOCYTES 0.05 10^3/uL (0.00-0.10); ADD DIFF? NO; ADD MORPH? NO; ADD SCAN? NO; ATYPICAL LYMPHOCYTE FLAG 10 (0-99); FRAGMENT RBC FLAG 0 (0-99); HEMATOCRIT 43.4 % (40.0-51.0); HEMOGLOBIN 15.2 g/dL (13.7-17.5); LEFT SHIFT FLG 0 (0-99); LIPEMIA HEMOLYSIS FLAG 90 (0-99); MEAN CELL HEMOGLOBIN 36.7 pg (27.9-34.1); MEAN CELL VOLUME 104.8 fL (81.5-99.8); PLATELET CLUMPS FLAG 10 (0-99); PLATELET COUNT 121 10^3/uL (150-400); RED BLOOD CELL COUNT 4.14 10^6/uL (4.40-6.38); RED CELL DISTRIBUTION WIDTH 13.1 % (11.5-15.2)
[2016-11-15 04:46] LABS: ANION GAP 8 mEq/L (8-16); CALCIUM 8.3 mg/dL (8.5-10.4); CARBON DIOXIDE 29 mEq/l (22-31); CHLORIDE 100 mEq/L (97-110); CREATININE 0.9 mg/dL (0.7-1.3); GLOMERULAR FILTRATION RATE > 60; GLUCOSE 95 mg/dL (70-100); POTASSIUM 3.4 mEq/L (3.5-5.2); SODIUM 137 mEq/L (134-144)
[2016-11-15 04:53] LABS: INR 2.78 (0.83-1.16); PROTIME(PATIENT) 29.7 SEC (12.0-15.0)
[2016-11-15] MEDS: DILTIAZEM CD 120 MG CAP PO SCH (09:01)
[2016-11-15] MEDS: FUROSEMIDE 40 MG/4 ML VIAL IVP SCH ×2 (09:02→15:31)
[2016-11-15] MEDS: GABAPENTIN 300 MG CAP PO SCH ×3 (09:02→20:28)
--- NOTE | 2016-11-15 10:25 | SOAPPROG ---
SOAP Progress Note Assessment/Plan: Assessment/Plan: This is a 86 yr old with chronic AF, mild to moderate valvular abnormalities with normal EF, bilateral DVT related pedal edema. AF: Rate is suboptimally controlled. will add Metoprolol to Cardizem. Continue Warfarin Pedal edema: Significantly improved. continue current care. Valvular abnormalities: Not a surgical disease at current point in time. Continue current med regimen BP is under optimal control 11/15/16 10:23 Subjective: Pt is doing well. No chest pain or pressure. Objective: Vital Signs Temp Pulse Resp BP Pulse Ox 36.3 C 112 H 19 108/65 93 11/15/16 07:16 11/15/16 07:16 11/15/16 07:16 11/15/16 07:16 11/15/16 07:16 Laboratory Results 11/15/16 03:40 11/15/16 03:40 11/14/16 11/15/16 11/16/16 05:59 05:59 05:59 Intake Total 700 1410 720 Output Total 1100 2125 Balance -400 -715 720 PT 29.7 SEC (12.0-15.0) H 11/15/16 03:40 INR 2.78 (0.83-1.16) H 11/15/16 03:40 Physical Exam - Physical Exam General Appearance: alert, no apparent distress EENT: normal ENT inspection Neck: full range of motion, supple Respiratory: lungs clear, No crackles, No rales Cardiac/Chest: systolic murmur, irregularly irregular Abdomen: non-tender, soft, No organomegaly Skin: normal color, warm/dry ICD10 Worksheet Patient Problems: Problems Problem Status Diagnosed Atrial fibrillation with RVR Acute Bilateral lower extremity edema Acute Peripheral edema Acute
[2016-11-15] MEDS: METOPROLOL TARTRATE 25 MG TAB PO SCH ×2 (11:02→20:28)
--- NOTE | 2016-11-15 13:05 | HOSPPROG ---
Hospitalist Progress Note Assessment/Plan: Assessment: This is a 86-year-old male visiting from [place] presenting with: # acute bilateral DVT which most likely developed after being off of Coumadin at the beginning of the month. I doubt that this represents Coumadin failure # paroxysmal atrial fibrillation with rapid ventricular response now improved # acute diastolic heart failure in the setting of rapid atrial fibrillation ( improving) weight down 9kg from admission # indeterminate troponin due to myocardial strain from above (improving trop) # history of alcohol dependence # suspected delirium plan: - continue warfarin with daily monitoring of the INR - cont dilt to 240mg daily - continue diuresis with IV furosemide BID and plan to change to oral lasix on discharge - monitor for signs and symptoms of alcohol withdrawal - repeat leg doppler in a few weeks to followup dvt dispo: plan to dc 11/16 on oral diuretics with outpatient followup with his PCP back in [place]. He plans to travel back to [place] with his daughter on Wednesday. Subjective: no chest pain or sob. improving leg swelling Objective: Vital Signs Temp Pulse Resp BP Pulse Ox 36.6 C 83 20 100/66 93 11/15/16 11:03 11/15/16 11:03 11/15/16 11:03 11/15/16 11:03 11/15/16 11:03 Laboratory Results 11/15/16 03:40 11/15/16 03:40 11/14/16 11/15/16 11/16/16 05:59 05:59 05:59 Intake Total 700 1410 720 Output Total 1100 2125 350 Balance -400 -715 370 PT 29.7 SEC (12.0-15.0) H 11/15/16 03:40 INR 2.78 (0.83-1.16) H 11/15/16 03:40 gen nad cv s1s2 pulm lungs clear improving leg edema ICD10 Worksheet Patient Problems: Problems Problem Status Diagnosed Atrial fibrillation with RVR Acute Bilateral lower extremity edema Acute Peripheral edema Acute
[2016-11-15] MEDS: WARFARIN SODIUM 4 MG TAB PO SCH (15:31)
[2016-11-15] MEDS: POTASSIUM CL 20 MEQ TAB PO SCH (15:31)
--- NOTE | 2016-11-15 16:20 | WOCRNPDOC ---
WOCRN Advanced Assessment Note - Skin Integrity Problem, Advanced Assess Bilateral Lower Leg Unknown Dressing Type: Open to Air Exudate Amount: Moderate Exudate Color: Clear Exudate Characteristic(s): Clear (presumed lymphatic drainage) Integumentary Issue Intervention: Dressing Applied (Mepilex foam and size E Tubigrips), Lotion/Cream Applied (Dimethicone Moisture Barrier Cream) Kayli Wound Tissue: Erythema, Weeping, Shiny, Taught Kayli Wound Swelling: None Wound Bed Color: [place] Wound Bed Constitution: Smooth Tissue Wound Edges: Attached, Well Defined Site Odor: None Site Measurement - Head-to-Toe Length X Width X Depth (cm): 0.6 cm henrique x 0.4 Extremity Temperature: Cool Lymphedema Present: Yes (>3+ pitting) Peripheral Edema Location & Description: pedal, ankle, and LE: symmetrical bilaterally Skin Integrity Problem Comment: Patient was sitting in recliner chair with LEs dependent at time of assessment. Encouaged patient to recline w/LEs elevated, which he was amenable to doing. After elevating LEs, provided care: Cleansed w/ moisture barrier wipes, applied moisture barrier cream, covered draining openings w/Mepilex foam; secured w/size E tubigrips. Verbal education to patient about elevating LEs; Report to HALIMA Butterfield.
[2016-11-15] MEDS: RED WINE 120 ML BOTTLE PO SCH (18:18)
[2016-11-15 19:03] VITALS: O2SAT 94
[2016-11-16 05:40] LABS: ABSOLUTE IMMATURE GRANULOCYTES 0.06 10^3/uL (0.00-0.10); ADD DIFF? NO; ADD MORPH? NO; ADD SCAN? NO; ATYPICAL LYMPHOCYTE FLAG 10 (0-99); FRAGMENT RBC FLAG 0 (0-99); HEMATOCRIT 44.7 % (40.0-51.0); HEMOGLOBIN 15.4 g/dL (13.7-17.5); LEFT SHIFT FLG 10 (0-99); LIPEMIA HEMOLYSIS FLAG 90 (0-99); MEAN CELL HEMOGLOBIN 36.1 pg (27.9-34.1); MEAN CELL HEMOGLOBIN CONCENTR. 34.5 g/dL (32.4-36.7); MEAN CELL VOLUME 104.7 fL (81.5-99.8); MEAN PLATELET VOLUME 9.8 fL (8.7-11.7); PLATELET CLUMPS FLAG 10 (0-99); PLATELET COUNT 123 10^3/uL (150-400); RED BLOOD CELL COUNT 4.27 10^6/uL (4.40-6.38); RED CELL DISTRIBUTION WIDTH 12.9 % (11.5-15.2)
[2016-11-16 05:47] LABS: INR 2.84 (0.83-1.16); PROTIME(PATIENT) 30.2 SEC (12.0-15.0)
[2016-11-16 05:51] LABS: ANION GAP 9 mEq/L (8-16); CALCIUM 8.2 mg/dL (8.5-10.4); CARBON DIOXIDE 29 mEq/l (22-31); CHLORIDE 101 mEq/L (97-110); CREATININE 0.8 mg/dL (0.7-1.3); GLOMERULAR FILTRATION RATE > 60; GLUCOSE 89 mg/dL (70-100); POTASSIUM 3.7 mEq/L (3.5-5.2); SODIUM 139 mEq/L (134-144)
[2016-11-16 08:41] VITALS: RESP 16; TEMP 97.8
[2016-11-16] MEDS: GABAPENTIN 300 MG CAP PO SCH ×2 (09:43→13:53)
[2016-11-16] MEDS: DILTIAZEM CD 120 MG CAP PO SCH (09:44)
[2016-11-16] MEDS: POTASSIUM CL 20 MEQ TAB PO SCH (09:44)
[2016-11-16] MEDS: FUROSEMIDE 40 MG/4 ML VIAL IVP SCH ×2 (09:44→13:49)
[2016-11-16] MEDS: METOPROLOL TARTRATE 25 MG TAB PO SCH (09:44)
--- NOTE | 2016-11-16 09:52 | PDIAF ---
- Diagnosis Diagnosis: Diastolic CHF, new onset afib, DVT, LE wounds Code Status: Full Code - Medication Management Discharge Medications: Medications to Continue on Transfer Gabapentin [Neurontin 300 MG (*)] 600 mg PO DAILY@08,12 11/12/16 [Last Taken Unknown] Gabapentin [Neurontin 300 MG (*)] 900 mg PO HS 11/12/16 [Last Taken Unknown] Warfarin Sodium [Coumadin 4MG (*)] 4 mg PO DAILY16 11/12/16 [Last Taken Unknown] Diltiazem Cd [Cardizem ER 120 MG (*)] 240 mg PO DAILY #30 cap 11/16/16 [Last Taken Unknown] Furosemide [Lasix 20 MG (*)] 20 mg PO DAILY #30 tab 11/16/16 [Last Taken Unknown ] Metoprolol Tartrate [Lopressor 25 mg (*)] 25 mg PO BID #60 tab 11/16/16 [Last Taken Unknown] Potassium Cl [Klor-Con 20 meq (*)] 20 meq PO DAILY #30 tab 11/16/16 [Last Taken Unknown] Discharge Medications: Refer to the Discharge Home Medication list for PRN reason. - Orders Services needed: Home Care, Registered Nurse, Physical Therapy, Occupational Therapy Home Care Face to Face: I certify that this patient was under my care and that I had the required [id number] encounter meeting the encounter requirements on the discharge day. My findings support the fact that the patient is homebound as defined in CMS Chapter 7 Medicare Benefits Manual 30.1.1, The condition of the patient is such that there exists a normal inability to leave home and consequently, leaving home would require a considerable and taxing effort. Diet Recommendation: sodium restricted Weigh Patient: daily Wound Care Instructions: Wound care to lower extremity wounds - Labs/Radiology BMP Date: 11/18/16 PT/INR Date: 11/18/16 - Follow Up Care Current Providers and Referrals: OUT OF STATE,. [Primary Care Provider] - As per Instructions Stepan Palencia MD [Medical Doctor] -
[2016-11-16 15:46] VITALS: BP 114/87; PULSE 98
--- NOTE | 2016-11-16 19:55 | GDS ---
[f rep st] DISCHARGE SUMMARY DISCHARGE DIAGNOSES: 1. Acute bilateral deep venous thromboses, due to a period of Coumadin noncompliance. 2. Atrial fibrillation. 3. Acute diastolic congestive heart failure. 4. Metabolic encephalopathy with probable underlying dementia. HISTORY: Angelo is an 86-year-old male, visiting his daughter from [place]. During their stay, his w cali fell and broke her hip and is now at [facility]. The patient presented to the emergency [facility] with increasing lower extremity edema and was found to be in new onset rapid AFib. HOSPITAL COURSE BY PROBLEM: 1. Acute bilateral deep venous thromboses. He did have a period of being off Coumadin because his p rescription ran out earlier this month. This is felt to be the etiology of the DVTs rather than a tr ue Coumadin failure. He has remained therapeutic on Coumadin throughout his hospitalization. Follow up ultrasound is recommended after he returns to [place]. 2. Atrial fibrillation with rapid ventricular response. He was started on diltiazem and metoprolol with good rate control. He is already on warfarin, which is continued. 3. Acute diastolic congestive heart failure. He was very edematous on presentation and was successf ully diuresed of almost 20 pounds of fluid. We will continue him on a [facility] DISCHARGE MEDICATIONS: Please see computer record for full detailed list. New medications: 1. Diltiazem ER 240 mg p.o. daily. 2. Lasix 20 mg p.o. daily. 3. Potassium 20 mg mEq p.o. daily. 4. Metoprolol 25 mg p.o. b.i.d. ADDITIONAL DISCHARGE INSTRUCTIONS: 1. Daily weights recommended. If your weight is increasing, then increase Lasix to 40 mg p.o. daily . 2. Wound care through home health RN for lower extremity weeping wounds due to his edema. 3. Repeat leg ultrasounds after arrival in [place] in 2 weeks. 4. Home health arranged with PT, OT, VNS. 5. Followup appointment scheduled with [facility] prior to traveling back to [place]. Greater than 30 minutes' time was spent arranging this discharge. Patient was seen and examined by munir proctor on the day of discharge. /[id number]/MODL
== END 2016-11-16 15:41 | disposition home health service (06) | DRG 299 ==
LOC: F2W 13:52
PROVIDERS: ADMIT Family Medicine; ATTEND Family Medicine
DX: I82.4Z3 Acute embolism and thrombosis of unspecified deep veins of distal lower extremity, bilateral (principal); I48.0 Paroxysmal atrial fibrillation; I50.31 Acute diastolic (congestive) heart failure; G93.41 Metabolic encephalopathy; Z79.01 Long term (current) use of anticoagulants; E66.9 Obesity, unspecified; Z68.32 Body mass index [BMI] 32.0-32.9, adult; F10.21 Alcohol dependence, in remission
CPT/HCPCS: 96374; 97161-GP; 97166-GO; 97530-GO; 97535-GO; G8978-GP-CJ; G8979-GP-CI; G8987-GO-CI; G8988-GO-CH